=== PATIENT | male | born 1945 | race Asian ===

== ENCOUNTER 2018-01-25 09:12 | Day surgery (SDC) | payer MEDICARE, OTHER ==
[2018-01-25] MEDS ORDERED: PROPOFOL 20 ML (10:06)
== END 2018-01-25 15:03 | disposition home or self-care (01) ==
LOC: GIL 09:12
DX: K92.1 Melena (principal); K64.8 Other hemorrhoids; I10 Essential (primary) hypertension; E11.9 Type 2 diabetes mellitus without complications; E78.5 Hyperlipidemia, unspecified; I25.10 Atherosclerotic heart disease of native coronary artery without angina pectoris; Z95.1 Presence of aortocoronary bypass graft
CPT/HCPCS: 45378; 82962